=== PATIENT | male | born 1975 | race Caucasian/White ===

== ENCOUNTER → 2020-10-07 09:33 | Outpatient (CLI) | payer OTHER, SELFPAY ==
[2020-10-07 23:58] LABS: SARS-CoV-2 RNA PCR Positive
== END ==
PROVIDERS: PCP Family Medicine; Visit Provider Internal Medicine
DX: U07.1 COVID-19 (principal)
CPT/HCPCS: C9803; U0003; U0005

== ENCOUNTER 2023-01-15 16:38 | Emergency (ER) | payer OTHER, SELFPAY ==
--- NOTE | ~2023-01-15 | CT_ITS ---
Non-contrast CT scan of the Abdomen and Pelvis Clinical indication: Left flank pain Technique: 2.5 mm axial scans were obtained through the abdomen and pelvis without intravenous or or al contrast. Dose reduction technique was used on this scan by utilizing automated exposure control a nd iterative reconstruction technique. The dose-length product (DLP) was 1264.16 mGy-cm. COMPARISON: 12/10/2018 Findings: Images through the lung bases reveal no abnormalities. There is a 2 mm stone at the left UVJ, with minimal fullness of the left renal collecting system. No right renal or ureteral stone. No right hydronephrosis. The liver, spleen, pancreas, gallbladder, and adrenals appear normal. There is no aortic aneurysm. There is no evidence of bowel obstruction. Images through the pelvis were performed. There is no evidence of ascites or lymphadenopathy. Urinary bladder otherwise unremarkable. Prostate gland and seminal vesicles are unremarkable. Impression: 2 mm left UVJ stone, with minimal fullness of left renal collecting system. Reviewed, dictated and finalized at [facility]. Impression: 2 mm left UVJ stone, with minimal fullness of left renal collecting system.
[2023-01-15 16:41] VITALS: BP 138/109; PULSE 107; RESP 20; TEMP 36.6; O2SAT 100
[2023-01-15 17:10] LABS: Basophils Percent Auto 0.4 % (0.2-1.2); Eosinophils Absolute Auto 0.1 K/mm3 (0-0.3); Eosinophils Percent Auto 0.7 % (0-4.4); Hematocrit 43.4 % (42.0-52.0); Hemoglobin 14.8 g/dL (14.0-18.0); Immature Granulocyte Absolute 0.02 K/mm3 (0.00-0.031); Immature Granulocyte Percent A 0.3 % (0-0.5); Lymphocytes Percent Auto 28.8 % (18.3-44.2); Mean Corpuscular HGB Conc 34.1 g/dl (32-36); Mean Corpuscular Hemoglobin 29.7 pg (26-34); Monocytes Absolute Auto 0.6 K/mm3 (0.1-0.6); Monocytes Percent Auto 7.9 % (2.6-8.5); Neutrophils Absolute Auto 4.3 K/mm3 (1.3-6.7); Neutrophils Percent Auto 61.9 % (45.5-73.1); Platelet Count Result 296 k/mm3 (150-375); Red Blood Count 4.99 M/mm3 (4.6-6.20); Red Cell Distribution Width 13.2 % (11.5-14.5)
[2023-01-15 17:23] LABS: Alanine Aminotransferase 51 U/L (6-50); Albumin Level 4.8 g/dL (3.5-5.1); Alkaline Phosphatase 61 U/L (38-126); Anion Gap 10 mmol/L (8-16); Aspartate Amino Transferase 41 U/L (17-59); Bilirubin,Total 0.7 mg/dL (0.2-1.3); Blood Urea Nitrogen 21 mg/dL (9-20); Calcium 9.2 mg/dL (8.4-10.2); Carbon Dioxide 21 mmol/L (22-30); Chloride 109 mmol/L (98-107); Estimated CRCL calculation 81 ml/min; Estimated Glomerular Filt Rate > 60; Glucose 104 mg/dL (65-110); Lipase 61 U/L (23-300); Sodium 140 mmol/L (137-145)
--- NOTE | 2023-01-15 17:52 | ED.GENADULT ---
HPI - General Adult General Chief complaint: Urogenital-Male <Shaylee Hall PA-C - Last Filed: 01/16/23 00:49> Stated complaint: flank pain, poss kidney stone <Shaylee Hall PA-C - Last Filed: 01/16/23 00:49> Time Seen by Provider: 01/15/23 17:25 <AL Coello Last Filed: 01/16/23 00:49> History of Present Illness HPI narrative: Patient is a 47 year old male here for evaluation of left flank pain x 4 hours. Patient states the pain is sharp and intermittent in nature, starts in his left flank and radiates to the front of his abdomen. He reports nausea and vomiting. He has had no fevers or chills, diarrhea or constipation, hematuria or dysuria. He has a history of kidney stones and states his symptoms today feel similar, these have all passed spontaneously. <AL Ceollo Last Filed: 01/16/23 00:49> Related Data Allergies/adverse reactions: Allergies Allergy/AdvReac Type Severity Reaction Status Date / Time No Known Allergies Allergy Unknown Verified 01/15/23 16:47 <AL Coello Last Filed: 01/16/23 00:49> Review of Systems Review of Systems: Gen.: Denies fevers or chills Eyes: Denies eye pain or visual change ENT: Denies congestion Respiratory: Denies shortness of breath or cough CV: Denies chest pain or palpitations GI: reports llq abdominal pain. denies burning, urgency, frequency or hematuria Musculoskeletal:reports left flank pain Neuro: Denies numbness, tingling, weakness or focal weakness Skin: Denies rash Except as documented, all other systems reviewed and negative <AL Coello Last Filed: 01/16/23 00:49> [facility] Family History Family History: Family History Mother Asthma Grandparent Diabetes mellitus Hypertension Grandparent Lung cancer Hypertension <AL Coello Last Filed: 01/16/23 00:49> Social History Social History: Social History Smoking packs per day: 0.5 Smoking cigarettes per day: 10.0 Years smoked: 25 Smoking pack-years: 12.50 Smoking status: Former smoker Tobacco type: cigarettes Second hand tobacco smoke exposure: No Smoking end date: 08/25/19 Alcohol intake: never Substance use: never Substance use type: does not use <Shaylee Hall PA-C - Last Filed: 01/16/23 00:49> Exam Narrative: APPEARANCE: uncomfortable appearing, writhing in bed Head: Normocephalic and atraumatic. EYES: PERRLA/EOMI, conjunctivae clear NOSE: No nasal drainage EARS: External ear normal in appearance THROAT: Oropharynx is clear. Mucous membranes are moist. NECK: Supple. No adenopathy, no masses. RESPIRATORY: Airway patent, respirations nonlabored. Clear to auscultation bilaterally, no rales, rhonchi, wheezing. CARDIOVASCULAR: Regular rate and rhythm without murmurs, rubs, or gallops. ABDOMINAL: Normoactive bowel sounds. Soft, nontender, nondistended. No rebound tenderness or guarding. MUSCULOSKELETAL: Extremities are warm and well-perfused. Moves all extremities well. No edema. NEURO: Normal speech. No focal neurologic deficits. SKIN: Skin is warm and dry. No rashes. PSYCHIATRIC: Normal affect/mood. <Shaylee Hall PA-C - Last Filed: 01/16/23 00:49> Course CAPTAIN/[employer]MAN/PA Physician Supervision This is a was performed by both a physician and an APC. I performed all aspects of the MDM as documented w/ the following additions: 47-year-old presenting with flank pain. Found to have a small kidney stone. Discharged with appropriate medications urology follow-up.All questions answered. Patient in agreement w/ disposition. <Brody Villaseñor MD - Last Filed: 01/18/23 03:56> Vital Signs Vital signs: Vital Signs Temperature 97.9 F 01/15/23 16:41 Pulse Rate 107 H 01/15/23 16:41 Respiratory Rate 20 06/
[2023-01-15 17:55] LABS: Appearance Urine Clear (Clear); Bacteria Urine None Seen /hpf; Bilirubin Urine Negative (Negative); Blood Urine 3+ (Negative); Color Urine Dark Yellow (Yellow); Glucose Urine UA Negative (Negative); Ketones Urine Trace mg/dL (Negative); Leukocyte Esterase Ur Negative LEU/UL (Negative); Nitrate Urine Negative (Negative); Non Pathogenic Casts 0-2; Protein Urine 1+ mg/dL (Negative); Squamous Epithelial Cell Urine None seen /hpf (Few); WBC Urine 0-5 /hpf; pH Urine 5.5 (5.0-9.0)
[2023-01-15 17:59] LABS: Specific Grav Ur 1.036 (1.001-1.035)
[2023-01-15 18:00] LABS: Add Urine Microscopic? YES
[2023-01-15] MEDS: HYDROmorphone HCL INJ (*CRX) 1 MG/ML SYR 0.5 MG IV PUSH (18:12)
[2023-01-15] MEDS: ONDANSETRON INJ 4 MG/2 ML VIAL IV PUSH (18:12)
[2023-01-15 18:14] VITALS: BP 109/71; PULSE 81; RESP 17; O2SAT 98
[2023-01-15] MEDS: KETOROLAC 15 MG/ML VIAL (*BKC) IV PUSH (19:03)
== END 2023-01-15 19:45 | disposition home or self-care (01) ==
PROVIDERS: Emergency Medicine; Emergency Provider Physician Assistant; PCP Pediatrics Neonatal-Perinatal Medicine
DX: N20.1 Calculus of ureter (principal); Z87.891 Personal history of nicotine dependence
CPT/HCPCS: 36415; 74176; 80053; 81001; 83690; 85025; 96374; 96375; 99284; J1170; J1885; J2405